=== PATIENT | female | born 1965 | race Caucasian/White ===

== ENCOUNTER 2018-10-09 16:48 | Emergency (ER) | payer OTHER ==
[~2018-10-09] VITALS: Ht 154.9 cm; Wt 60.8 kg
[~2018-10-09 16:48] MED LIST: COZAAR25 MG; GLIPIZIDE ER2.5 MG; SULFAMETHOXAZOL1 TA1 PO; SYNTHROID50 MCG
== END 2018-10-09 22:55 | disposition home or self-care (01) ==
LOC: ER 16:48
DX: M54.5 Low back pain (principal)

== ENCOUNTER 2020-05-29 17:13 | Emergency (ER) | payer OTHER ==
[~2020-05-29] VITALS: Ht 154.9 cm; Wt 63.5 kg
[2020-05-29] MEDS ORDERED: GLIMEPIRIDE4 MG (17:34)
[2020-05-29] MEDS ORDERED: LANTUS SOL100 UNIT/1 (17:35)
[2020-05-29] MEDS ORDERED: SYNTHROID75 MCG (17:35)
[2020-05-30] MEDS ORDERED: CIPRO500 MG PO (05:58)
[2020-05-30] MEDS ORDERED: LANTUS SOL100 UNIT/1 SUBCUTANEO (05:59)
[2020-05-30] MEDS ORDERED: COZAAR25 MG PO (05:59)
[2020-05-30] MEDS ORDERED: GLIMEPIRIDE4 MG PO (05:59)
[2020-05-30] MEDS ORDERED: LEVSIN/SL0.125 MG SL (05:59)
== END 2020-05-30 06:16 | disposition home or self-care (01) ==
LOC: ER 17:13
DX: R10.84 Generalized abdominal pain (principal); E11.65 Type 2 diabetes mellitus with hyperglycemia

== ENCOUNTER 2021-10-12 15:36 | Emergency (ER) | payer OTHER ==
[~2021-10-12] VITALS: Ht 154.9 cm; Wt 62.6 kg
[~2021-10-12 15:36] MED LIST changes: +CIPRO500 MG PO; +COZAAR25 MG PO; +GLIMEPIRIDE4 MG; +GLIMEPIRIDE4 MG PO; +LANTUS SOL100 UNIT/1; +LANTUS SOL100 UNIT/1 SUBCUTANEO; +LEVSIN/SL0.125 MG SL; +SYNTHROID75 MCG
[2021-10-12] MEDS ORDERED: HUMALOG100 UNIT/2 (15:49)
[2021-10-12] MEDS ORDERED: ASA81 MG (15:50)
[2021-10-12] MEDS ORDERED: NEURONTIN300 MG (15:50)
== END 2021-10-12 17:55 | disposition home or self-care (01) ==
LOC: ER 15:36
DX: R51.9 Headache, unspecified (principal); I10 Essential (primary) hypertension; E11.9 Type 2 diabetes mellitus without complications; Z79.899 Other long term (current) drug therapy; Z79.4 Long term (current) use of insulin

== ENCOUNTER 2021-11-25 02:20 | Emergency (ER) | payer OTHER ==
[~2021-11-25] VITALS: Ht 154.9 cm; Wt 62.6 kg
[~2021-11-25 02:20] MED LIST changes: +ASA81 MG; +HUMALOG100 UNIT/2; +NEURONTIN300 MG
== END 2021-11-25 05:39 | disposition home or self-care (01) ==
LOC: ER 02:20
DX: R11.10 Vomiting, unspecified (principal); A05.9 Bacterial foodborne intoxication, unspecified; I10 Essential (primary) hypertension; E11.65 Type 2 diabetes mellitus with hyperglycemia; Z79.84 Long term (current) use of oral hypoglycemic drugs

== ENCOUNTER 2023-06-02 03:04 | Emergency (ER) | payer OTHER ==
[~2023-06-02] VITALS: Ht 154.9 cm; Wt 54.0 kg
== END 2023-06-02 06:24 | disposition home or self-care (01) ==
LOC: ER
DX: I10 Essential (primary) hypertension (principal); F41.8 Other specified anxiety disorders; Z88.0 Allergy status to penicillin

== ENCOUNTER → 2023-06-13 | Emergency (ER) | payer OTHER | END | disposition left against medical advice (07) | LOC: ER 13:28 | DX: Z53.21 Procedure and treatment not carried out due to patient leaving prior to being seen by health care provider (principal) ==

== ENCOUNTER 2024-04-01 05:26 | Emergency (ER) | payer OTHER ==
[~2024-04-01] VITALS: Ht 154.9 cm; Wt 62.6 kg
[~2024-04-01 05:26] MED LIST changes: +COZAAR100 MG
[2024-04-01 09:03] LABS: PH,URINE 5.5 (5.0-8.0); URINE APPEARANCE Clear; URINE BILIRRUBIN Negative (NEGATIVE); URINE BLOOD Negative; URINE COLOR Yellow; URINE KETONE Negative (NEGATIVE); URINE LEUKOCYTE Negative; URINE NITRATE Negative; URINE PROTEIN Negative (NEGATIVE); URINE UROBILINOGEN 0.2 E.U./dl
[2024-04-01 09:06] LABS: URINE BACTERIA 692.7 uL (0.0-1933); URINE EPITHELIAL CELLS 12.8 uL (0.0-38.8); URINE WBC 8.6 uL (0.0-23.2)
[2024-04-01 09:24] LABS: URINE CAST 0.15 uL (0.0-1.40); URINE GLUCOSE >=1000 MG/DL (NEGATIVE); URINE RBC 0.7 uL (0.0-20.8)
[2024-04-01 09:38] LABS: HEMATOCRIT 35.7 % (36.0-45.00); MEAN CELL VOLUME 85.4 fL (80.00-100.00); MEAN CORPUSCULAR HEMOGLOBIN 28.7 pg (27.00-32.0); MEAN CORPUSCULAR HGB CONC 33.6 g/dl (32.0-36.0); PLATELET COUNT 316 K/uL (150-450); RED BLOOD COUNT 4.18 M/uL (4.00-6.00); RED CELL DISTRIBUTION WIDTH 13.4 % (11.5-14.5)
[2024-04-01] MEDS ORDERED: KETOROLAC TROMETHAMINE 30 MG VIAL IV ONE (11:00)
[2024-04-01] MEDS ORDERED: KETOROLAC TROMETHAMINE 30 MG VIAL ONE (11:01)
[2024-04-01] MEDS ORDERED: INSULIN REGULAR, HUMAN 1,000 UNIT/10 ML UNITS IV STA (12:07)
[2024-04-01] MEDS ORDERED: INSULIN REGULAR, HUMAN 1,000 UNIT/10 ML UNITS SUBCUTANEO STA (12:09)
[2024-04-01] MEDS ORDERED: SODIUM CHLORIDE 0.45 % 1,000 ML IV ONE (12:15)
[2024-04-01 13:15] LABS: ALBUMIN 3.5 gm/dL (3.4-5.0); BILIRUBIN TOTAL 0.35 mg/dL (0.3-1.2); CALCIUM 9.7 mg/dL (8.5-10.1); CREATININE SERUM 0.94 mg/dL (0.55-1.02); GFR 60.74; GLOBULINA 4.4 G/DL (2.4-3.5); POTASSIUM 4.34 mEq/L (3.5-5.1); TOTAL PROTEIN 7.9 gm/dL (6.4-8.2)
== END 2024-04-01 15:26 | disposition home or self-care (01) ==
LOC: ER 05:28
DX: E13.69 Other specified diabetes mellitus with other specified complication (principal); Z79.4 Long term (current) use of insulin; Z88.0 Allergy status to penicillin